=== PATIENT | male | born 1950 | race Caucasian/White ===

== ENCOUNTER 2016-09-25 09:55 | Emergency (ER) | payer MEDICARE, OTHER ==
[2016-09-25] MEDS ORDERED: LABETALOL HYDROCHLORIDE 5 MG/ML SOL IV ONE ×3 (10:20→10:33)
[2016-09-25] MEDS ORDERED: ONDANSETRON HCL 4 MG/2 ML SOL IV ONE (10:30)
[2016-09-25] MEDS ORDERED: ONDANSETRON HCL 4 MG/2 ML SOL ONE (10:30)
[2016-09-25 10:32] LABS: BASOPHILS % (AUTO) 1 % (0-3); EOSINOPHILS % (AUTO) 1 % (0-9); HEMATOCRIT 51 % (39-53); MEAN CORPUSCULAR HGB CONC 33.1 gm/dl (32.0-36.0); MEAN CORPUSCULAR VOLUME 83 fL (80-100); MONOCYTES % (AUTO) 3.4 % (0-12); NEUTROPHILS % (AUTO) 74.2 % (37-80)
[2016-09-25 10:40] LABS: ALBUMIN 3.8 gm/dl (3.4-5.0); ALT 44 IU/L (14-63); CALCIUM 8.6 mg/dl (8.5-10.1); GLOM FILT RATE 70 mL/min (>60); POTASSIUM 3.2 mMol/L (3.5-5.1); SODIUM 133 mMol/L (136-145)
[2016-09-25] MEDS ORDERED: POTASSIUM CHLORIDE 10 MEQ TER PO ONE (10:43)
[2016-09-25] MEDS ORDERED: DEXTROSE IV PRN (10:45)
[2016-09-25] MEDS ORDERED: SODIUM NITROPRUSSIDE IV PRN (10:45)
[2016-09-25] MEDS ORDERED: POTASSIUM CHLORIDE 2 MEQ/ML SOL IV ONE ×2 (10:45→10:48)
[2016-09-25 10:46] LABS: APPEARANCE,URINE Clear; BILIRUBIN,URINE NEGATIVE (NEGATIVE); COLOR,URINE Yellow; GLUCOSE, URINE (UA) 2+ (NEGATIVE); KETONES,URINE 1+ (NEGATIVE); LEUKOCYTE ESTERASE ,URINE NEGATIVE (NEGATIVE); NITRATE,URINE NEGATIVE (NEGATIVE); OCCULT BLOOD,URINE 2+ (NEG-TRACE); PH,URINE 6.5; UROBILINOGEN,URINE 0.2 (0.2-1.0 EU)
[2016-09-25] MEDS ORDERED: POTASSIUM CHLORIDE 10 MEQ TER ONE (10:46)
[2016-09-25] MEDS ORDERED: SODIUM NITROPRUSSIDE 50 MG/2 ML IV ONE (10:52)
[2016-09-25] MEDS ORDERED: SODIUM CHLORIDE 0.9% 1000ML 1,000 ML IV ONE (11:00)
[2016-09-25 11:01] LABS: AMPHETAMINES NEGATIVE (NEGATIVE); METHADONE NEGATIVE (NEGATIVE); OPIATES(OP13) NEGATIVE (NEGATIVE); OXYCODONE(OXY) NEGATIVE (NEGATIVE); PROPOXYPHENE(PPX) NEGATIVE (NEGATIVE); TRICYCLIC ANTIDEPRESSANTS NEGATIVE (NEGATIVE)
[2016-09-25] MEDS ORDERED: MIDAZOLAM 2 MG/2 ML SOL ONE (11:32)
[2016-09-25] MEDS ORDERED: FENTANYL 100MCG/2ML SOL ONE (11:32)
[2016-09-25] MEDS ORDERED: ROCURONIUM BROMIDE 10 MG/ML SOL IV ONE ×2 (11:33→11:36)
[2016-09-25] MEDS ORDERED: ETOMIDATE 2 MG/ML SOL IV ONE ×2 (11:33→11:36)
[2016-09-25 12:52] VITALS: BP 211/116; PULSE 100; RESP 22; O2SAT 91
[2016-09-25 13:16] VITALS: TEMP 98.8
== END 2016-09-25 12:16 | disposition short-term general hospital (02) | DRG 81 ==
LOC: ED 09:55
DX: R40.0 Somnolence (principal); E11.65 Type 2 diabetes mellitus with hyperglycemia; R56.9 Unspecified convulsions; I16.1 Hypertensive emergency; Z79.84 Long term (current) use of oral hypoglycemic drugs; H57.04 Mydriasis; H57.09 Other anomalies of pupillary function; E87.6 Hypokalemia; R00.0 Tachycardia, unspecified; R29.701 NIHSS score 1
CPT/HCPCS: 36415; 70450; 71010; 80053; 80305; 80307; 81001; 84484; 85025; 93005; 99291; J2250; J2405; J3010; J3480